=== PATIENT | female | born 1980 | race Caucasian/White ===

== ENCOUNTER 2023-07-07 09:37 | Outpatient (REF) | payer OTHER, SELFPAY ==
[2023-07-07 11:08] LABS: Erythrocyte Sedimentation Rate 7 MM/HR (0-20)
[2023-07-08 06:28] LABS: Lyme Abs Screen <0.90 index
== END 2023-07-07 09:38 | disposition home or self-care (01) ==
LOC: HO.LAB 09:37
PROVIDERS: PCP Internal Medicine; Visit Provider Psychiatry & Neurology Neurology
DX: R51.9 Headache, unspecified (principal)
CPT/HCPCS: 36415; 85652; 86617; 86618

== ENCOUNTER 2025-04-25 15:26 | Outpatient (AMB) | payer OTHER, SELFPAY ==
--- NOTE | 2025-04-25 15:36 | MHC.OFFVIS ---
Intake Visit Reasons: 6m Allergies No Known Allergies Allergy (Verified 03/25/25 11:43) HPI Comments Details: 44 years old left-handed woman with remote h/o drug abuse, s/p hystrectomy and one ovarian excision related to ovarian cysts, a small prolactinoma (managed by an bridge expert), chronic insomnia, and migraine type headaches. She is presenting for a follow-up visit for management of headaches. She reports that her headaches are occurring less frequently and that her sleep has improved. Her current medication regimen includes amitriptyline and an unspecified rescue medication. She has only used the rescue medication two or three times since her last refill in mid-March. The patient continues to see her bridge expert. Review of Systems Narrative - General: Reports improved sleep. - Neurological: Reports she is not getting very many headaches. Reports memory is okay. - Genitourinary: Reports bladder control is okay. -HEENT: No double vision Endocrine: No significant he 2 cold intolerance Sleep: No significant issue while taking amitriptyline Physical Exam Neuro Other: Mental Status: Alert and oriented to person, place, and time. Normal attention. Normal spontaneous speech, fluency, and comprehension. Cranial Nerves: CN II: Visual leigh full to confrontation, visual acuity intact. CN III, IV, : Pupils equal, round, reactive to light and accommodation. Extraocular movements are normal. CN V: Facial sensation is normal. CN VII: Facial movements symmetrical. CN VIII: Hearing intact to bedside conversation is normal. CN IX, X: Palate elevates symmetrically. CN XI: Shoulder shrug and head turn symmetrical. CN XII: Tongue midline without atrophy or fasciculations. Extrapyramidal: Full facial expressions and blinking. No rigidity. Movements are appropriate with no tremor or abnormality. Speech: Normal; no dysarthria or tremor. Assessment & Plan Assessment & Plan (1) Migraine without aura: Comment: Meds tried: Topiramate, amitriptyline MRI brain [facility] at [place] in Jun 2023: 6 x 3.4 x 6 mm pit adenoma, otherwise ok. Code(s): G43.009 - Migraine without aura, not intractable, without status migrainosus Category: Medical Qualifiers: Status migrainosus presence: without status migrainosus Intractability: not intractable Qualified Code(s): G43.009 - Migraine without aura, not intractable, without status migrainosus (2) Pituitary adenoma: Code(s): D35.2 - Benign neoplasm of pituitary gland Category: Medical (3) Insomnia: Code(s): G47.00 - Insomnia, unspecified Category: Medical Qualifiers: Insomnia type: psychophysiologic Qualified Code(s): F51.04 - Psychophysiologic insomnia Plan Impression: 1. Migraine without aura 2. Chronic insomnia Recommendations: 1. Amitriptyline 75 mg daily 2. Sumatriptan 50 mg 1 a day as needed I discussed with the patient that her headaches seem to be well-controlled, and her sleep has improved. I informed her that a six-month prescription of amitriptyline will be sent to [facility]. I recommended that she schedule her next follow-up appointment with my nurse practitioner, Paola, who specializes in headaches, and the patient agreed to this plan. Medications: Refilled amitriptyline 75 mg PO BEDTIME 90 tabs 1RF Coding Level of Care Code Est Pt Level 4 (47722) Diagnoses Migraine without aura and without status migrainosus, not intractable G43.009 Status migrainosus presence: without status migrainosus Intractability: not intractable Pituitary adenoma D35.2 Psychophysiological insomnia F51.04 Insomnia type: psychophysiologic
--- OUTSIDE RECORDS SUMMARY | 2025-04-26 00:59 | XMS_ITS | Clinical Summary ---
Author Organization [facility] [address] [place] [address] [place] [phone] Phone Care Team Providers Care Deputy Chief Executive Name Role Phone Tracey Nieves MD Primary Care Provider [phone] Allergies No known active allergies Medications albuterol HFA (PROAIR HFA ; PROVENTIL HFA ; VENTOLIN HFA) 90 mcg/actuation inhalerIndication s:Mild intermittent asthma without complication INHALE 2 PUFFS BY MOUTH INTO THE LUNGS EVERY 4 HOURS NEEDED FOR COUGHING OR WHEEZING 8.5 g 5 Active cholecalciferol (VITAMIN D-3) 50 mcg (2,000 unit) capsule Take 1 capsule (2,000 Units total) by mouth 1 (one) time each day. 90 capsule 3 5 Active levothyroxine (SYNTHROID, LEVOTHROID) 50 mcg tablet Take 1 tablet (50 mcg total) by mouth 1 (one) time each day. 30 each 11 5 08/20/19 26 Active buprenorphine-nal oxone (SUBOXONE) 8-2 mg per SL film PLACE 2 FILMS UNDER THE TONGUE AND ALLOW TO DISSOLVE ONCE A DAY Active Active Problems Problem Noted Date Diagnosed Date Anxiety 07/01/2024 Asthma 07/01/2024 Opioid dependence 07/01/2024 Overview (07/01/2024): heroin use- sober for six years. 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 Treated with steroids or prolonged taper CKD1 Major depression in remission 09/29/2017 Overview (07/01/2024): H/o self inflicted wrist laceration 2010 Encounters Date Type Department Care Team Description 03/06/2025 Nurse Triage Adult Medicine [address] [phone] Tracey Nieves MD 02/09/2025 10:45 AM EDT Office Visit Orthopedic Surgery - [address] [phone] Wayne Kulkarni, DPM Verruca plantaris (Primary Dx); Metatarsalgia of both feet from Last 3 Months Immunizations Immunization Administration Dates Next Due Influenza Quadravalent, MDCK , 0.5ml, preservative free (Flucelvax) 6mo and older 03/07/2022,02/10/2020 Influenza Quadrivalent, 0.5m l, preservative free (Fluarix; FluLaval; Fluzone) ages 6mo and older (Afluria) 3yo and older 05/17/2021 Influenza trivalent, 0.5mL, preservative free (Fluarix; FluLaval; Fluzone) ages 6mo and older (Afluria) 3 years and older 03/13/2016 Influenza trivalent, with pr eservative (Fluzone; Afluria) 6mo and older 03/13/2016 Tdap Tetanus diptheria acell ular pertussis (Boostrix; Adacel) 7yo and older 04/14/2018 Surgical History Surgery Date Site/Laterality Comments TUBAL LIGATION 2001 OTHER SURGICAL HISTORY Right salpingectomy for hydrosalpinx VAGINOSCOPY : x2 ALON 3 COLONOSCOPY 12/23/2014 for rectal bleeding, int hemmorhoids noted, stool thruout colon, repeat age 50 or as needed OVARIAN CYST REMOVAL HYSTERECTOMY Medical History Medical History Date Comments Asthma 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 follows with Dr Paris at [facility] Uterine fibroid 09/29/2017 Anxiety [facility] ([facility] V24) 09/29/2017 H/o self inflicted wrist laceration 2010 Family History Medical History Relation Name Comments Glaucoma Brother 1 Depression Brother 2 Hypertension Father Diabetes Maternal Grandfather Diabetes Maternal Grandmother Thyroid disease Mother depression, fibromyalgia Lung cancer Paternal Grandfather DM. breana dder cancer Diabetes Paternal Grandmother Breast cancer Neg Hx Colon cancer Neg Hx Relation Name Status Comments Brother 1 Alive Brother 2 Alive Father Alive Maternal Grandfather Maternal Grandmother Mother Alive Paternal Grandfather Alive Paternal Grandmother Social History Tobacco Use Types Packs/Day Years Used Date Smoking Tobacco: Former Cigarettes Smokeless Tobacco: Never Alcohol Use Standard Drinks/Week Comments Yes 0 (1 standard drink = 0.6 oz pur e alcohol) Comments No Sex and Gender Information Value Date Recorded Sex Assigned at Not on file Legal Sex Female 12:04 PM EST Gender Identity Not on file Sexual Orientation Not on file Last Filed Vital Signs Vital Sign Reading Time Taken Comments Blood Pressure 90/70 12/29/2024 9:50 AM EDT Pulse 74 12/29/2024 9:50 AM EDT Temperature 35.7 C (96.3 F) 12/29/2024 9:50 AM EDT Respiratory Rate 14 12/29/2024 9:50 AM EDT Oxygen Saturation 96% 12/29/2024 9:50 AM EDT Inhaled Oxygen Concentration - - Weight 74.4 kg (164 lb) 12/29/2024 9:50 AM EDT Height 170.2 cm (5' 7 ) 12/29/2024 9:50 AM EDT Body Mass Index 25.69 12/29/2024 9:50 AM EDT Plan of Treatment Health Maintenance Due Date Last Done Comments Hepatitis A Vaccines (1 of 2 - Risk 2-dose series) 10/26/1999 Hepatitis B Vaccines (1 of 3 - 19+ 3-dose series) 10/26/1999 Pneumococcal Vaccine: Pediatrics (0 to 5 Years) and At-Risk Patients (6 to 49 Years) (1 of 2 - PCV) 10/26/1999 HPV Vaccines (1 - 3-dose SCDM series) 10/26/2007 HIV Screening 04/27/2022 Hepatitis C Screening 04/27/2022 Social Influencers of Health Screening 04/27/2022 Cervical Cancer Screening: Pap Smear 05/18/2022 05/18/2019 Breast Cancer Screening 11/01/2023 10/31/2021, 06/04 Depression Screening 05/19/2024 COVID-19 Vaccine ( season) 2025 03/07/2022, 05/17/2021, 10/09/2020, Additional history exists Influenza Vaccine (#1) 2025 2, 05/17/2021, 02/10/2020, Additional history exists DTaP,Tdap,and Td Vaccines (2 - Td or Tdap) 04/14/2028 04/14/2018 RSV Immunization Adult Patients (1 - 1-dose 75+ series) 10/26/2055 HIB Vaccines Aged Out No longer eligi ble based on patient's age to complete this topic IPV Vaccines Aged Out No longer eligi ble based on patient's age to complete this topic MMR Vaccines Aged Out No longer eligi ble based on patient's age to complete this topic Meningococcal ACWY Vaccine Aged Out N o longer eligible based on patient's age to complete this topic Meningococcal B Vaccine Aged Out No l onger eligible based on patient's age to complete this topic RSV Immunization Patients Under 20 months Aged Out No longer eligible based on patient's age to complete this topic Varicella Vaccines Aged Out No longer eligible based on patient's age to complete this topic Procedures Procedure Name Priority Date/Time Associated Diagnosis Comments SCREENING MAMMOGRAPHY BI 2-VIEW BREAST INC CAD Routine 10/31/2021 11:08 AM EDT Encounter for screening mammogram for malignant neoplasm of breast PAP SMEAR Routine 05/18/2019 from Last 3 Months or Most Recently Relevant to Health Maintenance Results * SCREENING MAMMOGRAPHY BI 2-VIEW BREAST INC CAD (10/31/2021 11:08 AM EDT) Anatomical Region Laterality Modality Radiographic Ami ging 05/02/2021 9:55 AM EST Narrative 10/31/2021 3:54 PM EDT This is a summary report. The complete report is available in the patient's medical record. If you cannot access the medical record, please contact the sending organization for a detailed fax or copy. Full field digital screening 2D and 3D mammography, reviewed with CAD and compared to previous mammogram of 06/04/2019. The breast tissue is heterogeneously dense, limiting sensitivity. No suspicious mass, architectural distortion or suspicious calcifications are identified. IMPRESSION: : Dense breast tissue, limiting the sensitivity of mammography. No mammographic evidence of malignancy. BIRADS 1-Negative; N. 5 year breast cancer risk assessment N/A Lifetime breast cancer risk assessment N/A Breast cancer risk category Breast cancer risk not assessed Procedure Note Chelly Moreno MD - 05/07/2022 This is a summary report. The complete report is available in thepatient's medical record. If you cannot access the medical record, pleasecontact the sending organization for a detailed fax or copy. Full field digital screening 2D and 3D mammography, reviewed with CAD andcompared to previous mammogram of 06/04/2019. The breast tissue isheterogeneously dense, limiting sensitivity. No suspicious mass,architectural distortion or suspicious calcifications are identified. IMPRESSION: : Dense breast tissue, limiting the sensitivity of mammography. Nomammographic evidence of malignancy. BIRADS 1-Negative; N. 5 year breast cancer risk assessment N/A Lifetime breast cancer risk assessment N/A Breast cancer risk category Breast cancer risk not assessed us Zarina Gonzáles MD IMG XR PROCEDURES Final Res ult * Pap smear (05/18/2019) 05/18/2019 Narrative HISTORICAL TESTING LAB RESULTING AGENCY - 05/21/2019 1:05 PM EST [id number] THINPREP PAP, IMAGED: NEGATIVE FOR SQUAMOUS INTRAEPITHELIAL LESION AND MALIGNANCY . ABUNDANT RED BLOOD CELLS ARE PRESENT. RADHIKA SORIANO(ASCP) (CASE ELECTRONICALLY SIGNED 05 21 2019) RESULT OF APTIMA HIGH RISK HPV ASSAY: HIGH RISK HPV: NEGATIVE (SEROTYPES 16,18,31,33,35,39,45,51,52,56,58,59,66,68) COMPLETED ON 2019-05-21 ADEQUACY: SATISFACTORY ENDOCERVICAL/TRANSFORMATION ZONE COMPONENT PRESENT. SOURCE: THINPREP PAP HPV ANY DX: REFLEX 16 AND 18, CERVICAL, IMAGED CLINICAL INFORMATION: HPV ANY DIAGNOSIS. Z12.4, Z01.419, HORMONES, PAP HX NEGATIVE Beatriz Lomabrdo David [facility] CYTOLOGY ORDERA BLES Final Result HISTORICAL TESTING LAB RESULTING AGENCY from Last 3 Months or Most Recently Relevant to Health Maintenance Insurance [facility] Care Teams Deputy Chief Executive Relationship Specialty Start Date End Date Tracey Nieves MD [address] [place] [phone] PCP - General Internal Medicine 05/17/24
--- OUTSIDE RECORDS SUMMARY | 2025-04-26 00:59 | XMS_ITS | Clinical Summary ---
Author Organization [facility] Prior to 10/16/24 Address [address] [place] [address] Care Team Providers Care Casket Trimmer Name Role Phone Paola Quiñonez MD Primary Care Provider + Allergies No known active allergies Medications Medication Sig Dispensed Refills Start Date End Date Status ondansetron (ZOFRAN-ODT) 4 MG disintegrating tablet Take 1 tablet (4 mg total) by mouth every 8 (eight) hours as needed. 10 tablet 0 2018 Active Social History Tobacco Use Types Packs/Day Years Used Date Smoking Tobacco: Never Assessed Smokeless Tobacco: Never Alcohol Use Standard Drinks/Week Comments Yes 0 (1 standard drink = 0.6 oz pur e alcohol) 4-5 nips daily Sex and Gender Information Value Date Recorded Sex Assigned at Female 2018 5:51 PM EDT Gender Identity Not on file Sexual Orientation Not on file Last Filed Vital Signs Vital Sign Reading Time Taken Comments Blood Pressure 133/72 2018 7:27 PM EDT Pulse 84 2018 7:27 PM EDT Temperature 36.9 C (98.4 F) 2018 7:27 PM EDT Respiratory Rate 16 2018 7:27 PM EDT Oxygen Saturation 98% 2018 7:27 PM EDT Inhaled Oxygen Concentration - - Weight 68 kg (150 lb) 2018 5:30 PM EDT Height 170.2 cm (5' 7 ) 2018 5:30 PM EDT Body Mass Index 23.49 2018 5:30 PM EDT Plan of Treatment Health Maintenance Due Date Last Done Comments Hepatitis B Vaccines (1 of 3 - 3-dose series) 1980 Hepatitis C Screening 1980 COVID-19 Vaccine (#1) 04/26/1981 Depression Screening 1992 Preventative Health Evaluation 1998 DTap / Tdap / Td (1 - Tdap) 10/26/1999 Cervical Cancer Screening (P ap Smear) 2001 Influenza Vaccine (#1) 2025 Pneumococcal Vaccine Aged Out No long er eligible based on patient's age to complete this topic RSV Ped < 20 months Aged Out No longe r eligible based on patient's age to complete this topic Care Teams Casket Trimmer Relationship Specialty Start Date End Date Paola Quiñonez MD [address] [phone] PCP - General Internal Medicine 10/25/18
== END 2025-04-25 15:42 | disposition home or self-care (01) ==
LOC: HO.HSM 15:26
PROVIDERS: PCP Internal Medicine; Visit Provider Psychiatry & Neurology Neurology
DX: G43.009 Migraine without aura, not intractable, without status migrainosus (principal); D35.2 Benign neoplasm of pituitary gland; F51.04 Psychophysiologic insomnia
CPT/HCPCS: 99214